=== PATIENT | male | born 1995 | race Caucasian/White ===

== ENCOUNTER 2018-05-06 18:23 | Emergency (ER) | payer OTHER ==
[~2018-05-06] VITALS: Ht 182.9 cm; Wt 55.0 kg
[2018-05-06 19:10] VITALS: BP 129/77
[2018-05-06] MEDS ORDERED: ACET-3067 PO (21:08)
[2018-05-06] MEDS ORDERED: PENI500T2 PO (21:08)
[2018-05-06] MEDS ORDERED: acetaminophen w/codeine (30MG) #3 tablet PO ONE (21:10)
== END 2018-05-06 21:40 | disposition home or self-care (01) ==
LOC: ER 18:55
DX: K02.9 Dental caries, unspecified (principal); F17.210 Nicotine dependence, cigarettes, uncomplicated; Z79.899 Other long term (current) drug therapy
CPT/HCPCS: 99283

== ENCOUNTER 2018-05-09 11:01 | Emergency (ER) | payer OTHER ==
[~2018-05-09] VITALS: Ht 182.9 cm; Wt 61.4 kg
[~2018-05-09 11:01] MED LIST: ACET-3067 PO; PENI500T2 PO
[2018-05-09 11:19] VITALS: BP 154/90
[2018-05-09] MEDS ORDERED: AMOX500C2 PO (11:52)
[2018-05-09] MEDS ORDERED: CELE-193 PO (11:52)
[2018-05-09] MEDS ORDERED: CHLO473M3 PO (11:52)
== END 2018-05-09 12:22 | disposition home or self-care (01) ==
LOC: ER 11:01
DX: K04.7 Periapical abscess without sinus (principal); Z79.899 Other long term (current) drug therapy
CPT/HCPCS: 99283

== ENCOUNTER 2023-05-02 14:33 | Inpatient (IN) | payer MEDICAID ==
[~2023-05-02] VITALS: Ht 185.4 cm; Wt 81.0 kg
[~2023-05-02 14:33] MED LIST changes: -ACET-3067 PO; +CHLO473M3 PO; -PENI500T2 PO
[2023-05-02 15:41] LABS: BASOPHILS # (AUTO) 0.5 X10'3 (0-0.2); BASOPHILS % (AUTO) 2.8 % (0-1); EOSINOPHILS # (AUTO) 0.3 X10'3 (0-0.9); EOSINOPHILS % (AUTO) 1.4 % (0-6); HEMATOCRIT 36.7 % (42.0-52.0); HEMOGLOBIN 12.3 g/dl (14.0-17.9); LYMPHOCYTES # (AUTO) 0.6 X10'3 (1.1-4.8); LYMPHOCYTES % (AUTO) 3.6 % (21-51); MEAN CORPUSCULAR HEMOGLOBIN 28.8 PG (27.0-31.0); MEAN CORPUSCULAR HGB CONC 33.6 g/dL (33.0-36.5); MEAN CORPUSCULAR VOLUME 85.5 FL (78-98); MEAN PLATELET VOLUME 6.8 FL (7.4-10.4); MONOCYTES % (AUTO) 5.6 % (2-12); NEUTROPHILS # (AUTO) 15.3 X10'3 (1.8-7.7); NEUTROPHILS % (AUTO) 86.6 % (42-75); PLATELET COUNT 329 X10'3 (140-440); RED BLOOD COUNT 4.29 X10'6 (4.70-6.10); RED CELL DISTRIBUTION WIDTH 13.8 % (11.5-14.5); WHITE BLOOD COUNT 17.7 X10'3 (4.5-11.0)
[2023-05-02 15:54] LABS: ALANINE AMINOTRANSFERASE 38 U/L (12-78); ALBUMIN 2.4 G/DL (3.4-5.0); ALBUMIN/GLOBULIN RATIO 0.4 (1.1-1.5); ALKALINE PHOSPHATASE 128 IU/L (46-116); ANION GAP 12 (8-16); ASPARTATE AMINO TRANSFERASE 40 U/L (10-37); BILIRUBIN,DIRECT 0.2 MG/DL (0-0.3); BILIRUBIN,TOTAL 0.3 MG/DL (0.1-1.0); BLOOD UREA NITROGEN 8 MG/DL (7-18); BUN/CREATININE RATIO 7.1 (10.0-20.0); CALCIUM 8.9 MG/DL (8.5-10.1); CHLORIDE 94 MMOL/L (99-107); CREATININE 1.13 MG/DL (0.60-1.10); GLUCOSE 142 MG/DL (70-104); MAGNESIUM 1.9 MG/DL (1.5-2.4); POTASSIUM 3.7 MMOL/L (3.5-5.1); SODIUM 132 MMOL/L (135-145); TOTAL CARBON DIOXIDE 26.3 MMOL/L (24-32); eCRCL 110 ML/MIN; eGFR 77 ML/MIN
[2023-05-02] MEDS ORDERED: iohexol 300mg/ml 100ml inj. ONE (16:01)
[2023-05-02] MEDS ORDERED: ketorolac trometh. 30mg/ml inj. IV ONE (16:45)
[2023-05-02] MEDS: vancomycin 1,750 MG in NS 350ml IV soln IV ONE (17:00)
[2023-05-02] MEDS: ketorolac tromethamine 15mg/ml inj. IV ONE (17:06)
[2023-05-02] MEDS: normal saline 1000ML IV soln IV ONE (17:06)
[2023-05-02] MEDS: acetaminophen 325mg tablet PO STA (17:07)
[2023-05-02] MEDS: piperacillin/tazo 3.375gm/50ml 50 ML IV ONE (17:07)
[2023-05-02] MEDS ORDERED: ondansetron/PF 4mg/2ml inj IV PRN (18:05)
[2023-05-02] MEDS ORDERED: mag hydrox/Alum hydrox/simeth 30ml oral suspension PO PRN (18:05)
[2023-05-02] MEDS ORDERED: morphine 2 MG/ML inj. syringe IV PRN ×2 (18:05)
[2023-05-02] MEDS ORDERED: potassium Cl 20 mEq SR tablet PO PRN (18:05)
[2023-05-02] MEDS ORDERED: magnesium 4gm in 100ml NS 100 ML IV PRN (18:05)
[2023-05-02] MEDS ORDERED: magnesium hydroxide 30ml (MOM) UD suspension PO PRN (18:05)
[2023-05-02] MEDS ORDERED: potassium Cl 40MEQ/1/2NS 520ml 520 ML IV PRN (18:05)
[2023-05-02] MEDS ORDERED: magnesium Cl slow-release 64mg tablet PO PRN (18:05)
[2023-05-02] MEDS ORDERED: magnesium 2GM in 50ml NS 50 ML IV PRN (18:05)
[2023-05-02] MEDS ORDERED: acetaminophen 325mg tablet PO PRN ×2 (18:05)
[2023-05-02 19:05] VITALS: BP 141/74; PULSE 92; RESP 18; TEMP 97.9
[2023-05-02 19:30] VITALS: RESP 18; O2SAT 99
[2023-05-02] MEDS: K and/or MAG REPLACEMENT MC SCH (20:00)
[2023-05-02] MEDS: normal saline 1000ml 1,000 ML IV SCH (20:00)
[2023-05-02] MEDS: heparin, porcine 5000 units/ml vial SQ SCH (20:03)
[2023-05-02 22:00] VITALS: BP 119/57; PULSE 101; RESP 17; TEMP 97.8
[2023-05-03] MEDS: VANCOmycin 1250MG/NS 250ml Bag 250 ML IV SCH (04:01)
[2023-05-03 06:00] VITALS: BP 120/66; PULSE 101; RESP 18; TEMP 98.2; O2SAT 97
[2023-05-03 06:42] LABS: APTT 31 SECONDS (22-32); INR 1.1 INR; PROTHROMBIN TIME 11.4 SECONDS (9.0-12.0)
[2023-05-03 06:43] LABS: MEAN PLATELET VOLUME 6.7 FL (7.4-10.4); PLATELET COUNT 275 X10'3 (140-440)
[2023-05-03 06:47] LABS: BASOPHILS # (AUTO) 0.1 X10'3 (0-0.2); BASOPHILS % (AUTO) 0.5 % (0-1); EOSINOPHILS # (AUTO) 0.3 X10'3 (0-0.9); EOSINOPHILS % (AUTO) 3.4 % (0-6); HEMATOCRIT 33.1 % (42.0-52.0); HEMOGLOBIN 11.1 g/dl (14.0-17.9); LYMPHOCYTES # (AUTO) 1.2 X10'3 (1.1-4.8); LYMPHOCYTES % (AUTO) 12.2 % (21-51); MEAN CORPUSCULAR HEMOGLOBIN 29.2 PG (27.0-31.0); MEAN CORPUSCULAR HGB CONC 33.5 g/dL (33.0-36.5); MEAN CORPUSCULAR VOLUME 87.2 FL (78-98); MONOCYTES # (AUTO) 0.9 X10'3 (0-0.9); MONOCYTES % (AUTO) 8.8 % (2-12); NEUTROPHILS # (AUTO) 7.3 X10'3 (1.8-7.7); NEUTROPHILS % (AUTO) 75.1 % (42-75); RED BLOOD COUNT 3.79 X10'6 (4.70-6.10); RED CELL DISTRIBUTION WIDTH 13.8 % (11.5-14.5); WHITE BLOOD COUNT 9.8 X10'3 (4.5-11.0)
[2023-05-03 06:54] LABS: ALANINE AMINOTRANSFERASE 34 U/L (12-78); ALBUMIN 1.7 G/DL (3.4-5.0); ALBUMIN/GLOBULIN RATIO 0.4 (1.1-1.5); ALKALINE PHOSPHATASE 97 IU/L (46-116); ANION GAP 9 (8-16); ASPARTATE AMINO TRANSFERASE 32 U/L (10-37); BILIRUBIN,TOTAL 0.2 MG/DL (0.1-1.0); BLOOD UREA NITROGEN 4 MG/DL (7-18); BUN/CREATININE RATIO 5.6 (10.0-20.0); CALCIUM 7.8 MG/DL (8.5-10.1); CHLORIDE 105 MMOL/L (99-107); CREATININE 0.72 MG/DL (0.60-1.10); GLUCOSE 101 MG/DL (70-104); POTASSIUM 3.6 MMOL/L (3.5-5.1); SODIUM 140 MMOL/L (135-145); TOTAL CARBON DIOXIDE 26.5 MMOL/L (24-32); TOTAL PROTEIN 5.8 G/DL (6.4-8.2); eCRCL 173 ML/MIN; eGFR > 90 ML/MIN
[2023-05-03 08:00] VITALS: RESP 18; O2SAT 97
[2023-05-03 10:00] VITALS: BP 109/65; PULSE 105; RESP 16; TEMP 97.1; O2SAT 91
[2023-05-03] MEDS: HYDROcodone/acetaminophen 10/325mg tab PO PRN (12:03)
[2023-05-03 18:00] VITALS: BP 127/74; PULSE 105; RESP 15; TEMP 98.7; O2SAT 97
[2023-05-03 20:00] VITALS: RESP 15; O2SAT 97
[2023-05-03] MEDS: HYDROcodone/acetaminophen 5mg/325mg tablet PO PRN (21:01)
[2023-05-04 05:39] LABS: BASOPHILS # (AUTO) 0.1 X10'3 (0-0.2); EOSINOPHILS # (AUTO) 0.4 X10'3 (0-0.9); EOSINOPHILS % (AUTO) 3.4 % (0-6); RED BLOOD COUNT 3.62 X10'6 (4.70-6.10)
[2023-05-04 05:44] LABS: BASOPHILS % (AUTO) 0.7 % (0-1); HEMATOCRIT 31.5 % (42.0-52.0); HEMOGLOBIN 10.6 g/dl (14.0-17.9); LYMPHOCYTES # (AUTO) 1.3 X10'3 (1.1-4.8); LYMPHOCYTES % (AUTO) 12.1 % (21-51); MEAN CORPUSCULAR HEMOGLOBIN 29.2 PG (27.0-31.0); MEAN CORPUSCULAR HGB CONC 33.6 g/dL (33.0-36.5); MEAN PLATELET VOLUME 6.6 FL (7.4-10.4); NEUTROPHILS # (AUTO) 8.1 X10'3 (1.8-7.7); NEUTROPHILS % (AUTO) 74.8 % (42-75); PLATELET COUNT 287 X10'3 (140-440); WHITE BLOOD COUNT 10.9 X10'3 (4.5-11.0)
[2023-05-04 05:46] LABS: APTT 29 SECONDS (22-32); INR 1.1 INR; PROTHROMBIN TIME 11.4 SECONDS (9.0-12.0)
[2023-05-04 05:50] LABS: ALANINE AMINOTRANSFERASE 36 U/L (12-78); ALBUMIN 1.7 G/DL (3.4-5.0); ALBUMIN/GLOBULIN RATIO 0.4 (1.1-1.5); ALKALINE PHOSPHATASE 112 IU/L (46-116); ANION GAP 7 (8-16); ASPARTATE AMINO TRANSFERASE 34 U/L (10-37); BILIRUBIN,TOTAL 0.2 MG/DL (0.1-1.0); BLOOD UREA NITROGEN 3 MG/DL (7-18); BUN/CREATININE RATIO 4.2 (10.0-20.0); CALCIUM 8.2 MG/DL (8.5-10.1); CHLORIDE 105 MMOL/L (99-107); CREATININE 0.71 MG/DL (0.60-1.10); GLUCOSE 109 MG/DL (70-104); MAGNESIUM 1.7 MG/DL (1.5-2.4); PHOSPHORUS 3.6 MG/DL (2.3-4.5); POTASSIUM 3.4 MMOL/L (3.5-5.1); SODIUM 139 MMOL/L (135-145); TOTAL CARBON DIOXIDE 27.3 MMOL/L (24-32); TOTAL PROTEIN 6.2 G/DL (6.4-8.2); eCRCL 175 ML/MIN; eGFR > 90 ML/MIN
[2023-05-04 06:00] VITALS: BP 91/44; PULSE 88; RESP 16; TEMP 96.9; O2SAT 98
[2023-05-04] MEDS: potassium Cl 20 mEq SR tablet PO PRN (06:56)
[2023-05-04 10:00] VITALS: BP 114/67; PULSE 97; RESP 16; TEMP 97.2; O2SAT 95
[2023-05-04] MEDS: VANCOMYCIN LEVEL IJ ONE (16:47)
[2023-05-04 18:00] VITALS: BP 113/68; PULSE 97; RESP 18; TEMP 96.2; O2SAT 96
[2023-05-04 22:00] VITALS: BP 114/68; PULSE 98; RESP 17; TEMP 97.2; O2SAT 95
[2023-05-05 02:00] VITALS: BP 102/67; PULSE 105; RESP 16; TEMP 99; O2SAT 94
[2023-05-05 06:14] VITALS: BP 126/55; PULSE 98; RESP 16; TEMP 97.8; O2SAT 98
[2023-05-05 06:43] LABS: BASOPHILS # (AUTO) 0.1 X10'3 (0-0.2); BASOPHILS % (AUTO) 0.7 % (0-1); EOSINOPHILS # (AUTO) 0.4 X10'3 (0-0.9); EOSINOPHILS % (AUTO) 3.9 % (0-6); HEMATOCRIT 32.1 % (42.0-52.0); HEMOGLOBIN 10.7 g/dl (14.0-17.9); LYMPHOCYTES # (AUTO) 1.6 X10'3 (1.1-4.8); MEAN CORPUSCULAR HGB CONC 33.4 g/dL (33.0-36.5); MEAN PLATELET VOLUME 6.7 FL (7.4-10.4); MONOCYTES # (AUTO) 1.1 X10'3 (0-0.9); MONOCYTES % (AUTO) 9.7 % (2-12); NEUTROPHILS # (AUTO) 7.7 X10'3 (1.8-7.7); NEUTROPHILS % (AUTO) 70.7 % (42-75); PLATELET COUNT 363 X10'3 (140-440); RED BLOOD COUNT 3.68 X10'6 (4.70-6.10); RED CELL DISTRIBUTION WIDTH 13.9 % (11.5-14.5)
[2023-05-05 06:54] LABS: APTT 31 SECONDS (22-32); INR 1.1 INR; PROTHROMBIN TIME 11.9 SECONDS (9.0-12.0)
[2023-05-05 07:08] LABS: ALANINE AMINOTRANSFERASE 46 U/L (12-78); ALBUMIN 1.6 G/DL (3.4-5.0); ALBUMIN/GLOBULIN RATIO 0.3 (1.1-1.5); ALKALINE PHOSPHATASE 127 IU/L (46-116); ANION GAP 5 (8-16); ASPARTATE AMINO TRANSFERASE 39 U/L (10-37); BILIRUBIN,TOTAL 0.2 MG/DL (0.1-1.0); BLOOD UREA NITROGEN 4 MG/DL (7-18); BUN/CREATININE RATIO 5.6 (10.0-20.0); CALCIUM 7.8 MG/DL (8.5-10.1); CHLORIDE 104 MMOL/L (99-107); CREATININE 0.71 MG/DL (0.60-1.10); GLUCOSE 122 MG/DL (70-104); MAGNESIUM 1.9 MG/DL (1.5-2.4); PHOSPHORUS 3.9 MG/DL (2.3-4.5); POTASSIUM 3.8 MMOL/L (3.5-5.1); SODIUM 138 MMOL/L (135-145); TOTAL PROTEIN 6.3 G/DL (6.4-8.2); eCRCL 175 ML/MIN; eGFR > 90 ML/MIN
[2023-05-05 08:00] VITALS: RESP 18; O2SAT 94
[2023-05-05] MEDS ORDERED: LINE600T14 PO (11:30)
[2023-05-05 14:59] VITALS: RESP 16
[2023-05-05] MEDS ORDERED: VANCOMYCIN 1,500MG in NS 300ml IVPB IV SCH (17:00)
[2023-05-07] MEDS ORDERED: VANCOMYCIN LEVEL IJ ONE (04:30)
== END 2023-05-05 16:30 | disposition home or self-care (01) | DRG 720 ==
LOC: ER 14:33 → ED HOLD 18:06 → ORTHO 4S 19:11
PROVIDERS: ADMIT Internal Medicine; ATTEND Internal Medicine
PROC: BQ2R1ZZ Computerized Tomography (CT Scan) of Right Lower Extremity using Low Osmolar Contrast (ICD-10-PCS; principal; 2023-05-02)
DX: A41.9 Sepsis, unspecified organism (principal); L03.115 Cellulitis of right lower limb; F19.10 Other psychoactive substance abuse, uncomplicated; E87.6 Hypokalemia
CPT/HCPCS: 36415; 71045; 73590; 73630; 73701; 80048; 80053; 80076; 80202; 83605; 83735; 84100; 84145; 85025; 85610; 85730; 87040; 87070; 87077; 87081; 87186; 93005; 93306; 93970; 96365; 96368; 96375; 99285; A4649; A6250; A6446; A6449; G0378; J1644; J1885; J2543; J3370; J3490; J7030; J7040; Q9967